=== PATIENT | female | born 1930 | race Caucasian/White ===

== ENCOUNTER → 2019-02-15 | Outpatient (CLI) | payer MEDICARE, OTHER ==
--- NOTE | 2019-02-15 17:14 | Diagnostic Imaging Report ---
INDICATION: Generalized abdominal pain. No bowel movement x2 days. TECHNIQUE: Single view chest with supine and upright radiographs of the abdomen. 09:00 a.m. CORRELATION STUDY: None. FINDINGS: Lung clement are slightly hyperinflated. Minimal discoid atelectasis in the left costophrenic angle. Mildly prominent interstitial markings could be reflective of chronic lung disease. No significant free air. A few gas-filled loops of bowel are present in the left mid abdomen. No abnormally dilated loops of bowel to suggest obstruction. No significant differential air-fluid levels. Gas and stool to the level of the rectum. Presumably cholecystectomy clips in the right upper quadrant. IMPRESSION: 1. Negative for acute cardiopulmonary abnormality. 2. No findings to suggest high degree of bowel obstruction. Mild ileus pattern not excluded. Mild severity fecal retention without evidence for large fecal impaction. Dictated by: Dictated on workstation # [id number]
== END ==
LOC: RAD FS 08:54
PROVIDERS: ATTEND Family Medicine
DX: K59.00 Constipation, unspecified (principal)
CPT/HCPCS: 74022

== ENCOUNTER → 2019-08-22 | Outpatient (CLI) | payer MEDICARE, OTHER ==
--- NOTE | 2019-08-22 11:11 | Diagnostic Imaging Report ---
INDICATION: Left knee pain. AP, oblique, and lateral views of left knee are obtained. FINDINGS: No fracture or acute bony abnormality is seen. There is patellofemoral joint space narrowing and osteophyte formation. There is medial joint space narrowing with osteophyte formation. Lateral joint space appears preserved. There is no joint effusion IMPRESSION: Degenerative findings, most prominent in the medial and patellofemoral compartments. No acute bony abnormality. Dictated by: Dictated on workstation # [id number]
== END ==
LOC: RAD FS 10:12
PROVIDERS: ATTEND Nurse Practitioner
DX: M17.12 Unilateral primary osteoarthritis, left knee (principal)
CPT/HCPCS: 73562